=== PATIENT | female | born 1990 | race American Indian/Alaskan Native ===

== ENCOUNTER 2017-09-18 00:09 | Outpatient (CLI) | payer OTHER ==
[2017-09-18 00:21] VITALS: BP 133/84
== END 2017-09-18 00:58 | disposition home or self-care (01) ==
LOC: TRG 00:09
PROVIDERS: ATTEND Obstetrics & Gynecology
DX: O48.0 Post-term pregnancy (principal); Z3A.40 40 weeks gestation of pregnancy

== ENCOUNTER 2017-09-21 07:50 | Inpatient (IN) | payer OTHER ==
[2017-09-21] MEDS ORDERED: LACTATED RINGERS 1,000 ML IV ONE (08:14)
[2017-09-21] MEDS ORDERED: LACTATED RINGERS 1,000 ML ONE (08:16)
[2017-09-21] MEDS ORDERED: BRETHINE SUB-Q PRN (08:34)
[2017-09-21] MEDS ORDERED: ePHEDrine SULFATE IV PRN ×2 (08:34→13:31)
[2017-09-21] MEDS ORDERED: SUBLIMAZE IV PRN (08:34)
[2017-09-21] MEDS ORDERED: MINERAL OIL PO PRN (08:34)
[2017-09-21] MEDS ORDERED: ZOFRAN IV PRN (08:34)
[2017-09-21] MEDS ORDERED: XYLOCAINE 2% INFILTRATI ONE (08:34)
--- NOTE | 2017-09-21 08:34 | History and Physical Report ---
History of Present Illness Date of examination: 09/21/17 Chief complaint: labor contractions @ 41+0 by LMP History of present illness: patient has had no care, per patient. reports LMP 12/08/16 which gives EDC 09/14/17 making patient 41 weeks today Patient reports some measurement at some hospital around 30 weeks that gave EDC of 09/30/17. Will assign EDC based on LMP. Patient denies medical hx, + HSV but never had an outbreak surgical hx: gallbladder removal 2012 OB hx: 2006 2007 2010 2013 - pre-e 2014 2016 - pre-e Past History Past Medical History: no pertinent history Past Surgical History: cholecystectomy [facility]ICKER History: herpes Family/Genetic History: none Social history: no significant social history. denies: smoking, alcohol abuse, prescription drug abuse - Obstetrical History Expected Date of Delivery: 09/14/17 Actual Gestation: 41 Week(s) 0 Day(s) : 7 Para: 6 Hx # Term Pregnancies: 6 Number of Pregnancies: 0 Spontaneous Abortions: 0 Induced : 0 Number of Living Children: 6 Medications and Allergies Allergies Allergy/AdvReac Type Severity Reaction Status Date / Time Penicillins Allergy Rash Verified 09/18/17 00:39 Home Medications Medication Instructions Recorded Confirmed Last Taken Type No Known Home Medications [No 09/21/17 09/21/17 Unknown History Reported Home Medications] Active Meds: Active Medications Lactated Ringer's (Lactated Ringers) 1,000 mls @ 999 mls/hr IV BOLUS ONE Stop: 09/21/17 09:14 Review of Systems All systems: negative - Vital Signs Vital signs: Vital Signs Pulse BP 88 121/80 09/21/17 08:26 09/21/17 08:26 Temp Pulse Resp BP Pulse Ox 88 121/80 09/21/17 08:26 09/21/17 08:26 - Physical Exam Breasts: Positive: normal Cardiovascular: Regular rate Lungs: Positive: Clear to auscultation, Normal air movement Abdomen: Positive: normal appearance, soft Genitourinary (Female): Positive: normal external genitalia, normal perenium ( no lesions noted) Vulva: both: normal Vagina: Positive: normal moisture Uterus: Positive: normal size Anus/Rectum: Positive: normal perianal skin Extremities: Positive: normal Deep Tendon Reflex Grade: Normal +2 - Obstetrical FHR: category 2 (variables) Uterine Contraction Monitor Mode: External Cervical Dilatation: 5 Cervical Effacement Percentage: 60 station: -2 Uterine Contraction Frequency (min): 2-3 Uterine Contraction Duration: 60 Uterine Contraction Pattern: Regular Uterine Tone Measurement Phase: Contraction Uterine Contraction Intensity: Moderate Results All other labs normal. Assessment and Plan 27y/o w/o care @ 41weeks by LMP admitted for labor. SVE 5/60/-2, regular ctx not decreased by ivf bolus, IBOW, no HSV lesions. Admission orders in EMR. Dr. Milian aware of admission. - Patient Problems (1) 40 weeks gestation of Current Visit: Yes Status: Acute (2) GBS screening not performed Current Visit: Yes Status: Acute Plan to address problem: no care Will treat with cleocin q8h d/t pcn allergy (3) Genital HSV Current Visit: Yes Status: Acute Plan to address problem: no lesions noted (4) with insufficient care Current Visit: Yes Status: Acute Qualifiers: Trimester: third trimester Qualified Code(s): O09.33 - Supervision of with insufficient care, third trimester Plan to address problem: OB labs and UDS will treat for unknown GSB
[2017-09-21] MEDS ORDERED: PITOCin/NS 20 UNIT/1000ML DRIP 20 UNITS/1,000 ML BAG IV SCH ×2 (09:00→18:00)
[2017-09-21] MEDS ORDERED: LACTATED RINGERS 1,000 ML IV SCH (09:00)
[2017-09-21] MEDS ORDERED: CLEOCIN 900 MG/50 mL 900 MG/50 ML BAG IV ONE (10:10)
[2017-09-21 10:28] LABS: Hematocrit 27.9 % (30.3-42.9); Hemoglobin 8.6 gm/dl (10.1-14.3); Mean Corpuscular HGB Conc 31 % (30-34); Mean Corpuscular Hemoglobin 20 pg (28-32); Mean Corpuscular Volume 64 fl (79-97); Platelet Count 205 K/mm3 (140-440); Red Blood Count 4.37 M/mm3 (3.65-5.03); Red Cell Distribution Width 15.5 % (13.2-15.2)
[2017-09-21 11:05] LABS: Rubella IgG Antibody Immune (Immune)
--- NOTE | 2017-09-21 11:46 | Progress Note ---
Assessment and Plan SVE 5-/-1, AROM clear fluid. IUPC placed without difficulty. Will start pitocin augmentation. Dr. Milian updated and aware of patient's status. - Patient Problems (1) GBS screening not performed Current Visit: Yes Status: Acute (2) Genital HSV Current Visit: Yes Status: Acute (3) with insufficient care Current Visit: Yes Status: Acute Qualifiers: Trimester: third trimester Qualified Code(s): O09.33 - Supervision of with insufficient care, third trimester (4) 41 weeks gestation of Current Visit: Yes Status: Acute Subjective - Subjective Date of service: 09/21/17 Principal diagnosis: iup @ 41W, no care Interval history: patient has had no care, per patient. reports LMP 12/08/16 which gives EDC 09/14/17 making patient 41 weeks today Patient reports some measurement at some hospital around 30 weeks that gave EDC of 09/30/17. Will assign EDC based on LMP. Patient denies medical hx, + HSV but never had an outbreak surgical hx: gallbladder removal 2012 OB hx: 2006 2007 2010 2013 - pre-e 2014 2016 - pre-e Patient reports: contractions Objective - Vital Signs Vital Signs: Vital Signs - 12hr 09/21/17 09/21/17 09/21/17 08:26 09:03 09:25 Temperature 98.4 F Pulse Rate 88 94 H 115 H Respiratory 20 Rate Blood Pressure 121/80 102/71 Blood Pressure 102/71 [Left] O2 Sat by Pulse Oximetry 09/21/17 09/21/17 09/21/17 09:29 09:34 09:39 Temperature Pulse Rate 100 H 100 H 95 H Respiratory Rate Blood Pressure Blood Pressure [Left] O2 Sat by Pulse 100 100 100 Oximetry 09/21/17 09/21/17 09/21/17 09:44 09:49 09:54 Temperature Pulse Rate 96 H 98 H 100 H Respiratory Rate Blood Pressure Blood Pressure [Left] O2 Sat by Pulse 100 100 100 Oximetry 09/21/17 09/21/17 09/21/17 09:59 10:04 10:09 Temperature Pulse Rate 93 H 98 H 103 H Respiratory Rate Blood Pressure Blood Pressure [Left] O2 Sat by Pulse 100 100 88 Oximetry 09/21/17 09/21/17 09/21/17 10:14 10:15 10:19 Temperature Pulse Rate 92 H 102 H 97 H Respiratory Rate Blood Pressure Blood Pressure [Left] O2 Sat by Pulse 100 90 100 Oximetry 09/21/17 09/21/17 09/21/17 10:24 10:29 10:34 Temperature Pulse Rate 98 H 98 H 104 H Respiratory Rate Blood Pressure Blood Pressure [Left] O2 Sat by Pulse 100 100 99 Oximetry 09/21/17 09/21/17 09/21/17 10:39 10:44 10:49 Temperature Pulse Rate 104 H 85 93 H Respiratory Rate Blood Pressure Blood Pressure [Left] O2 Sat by Pulse 100 99 100 Oximetry 09/21/17 09/21/17 09/21/17 10:54 10:59 11:04 Temperature Pulse Rate 112 H 96 H 105 H Respiratory Rate Blood Pressure Blood Pressure [Left] O2 Sat by Pulse 100 100 100 Oximetry 09/21/17 11:09 Temperature Pulse Rate 109 H Respiratory Rate Blood Pressure Blood Pressure [Left] O2 Sat by Pulse 100 Oximetry - Exam Breasts: normal Cardiovascular: Regular rate Lungs: Clear to auscultation, Normal air movement Abdomen: Present: normal appearance, soft Vulva: both: normal Uterus: Present: normal FHR: category 1 Uterine Contraction Monitor Mode: Internal Cervical Dilatation: 5.5 Cervical Effacement Percentage: 70 station: -1 Uterine Contraction Frequency (min): 3-5 Uterine Contraction Duration: 60 Uterine Contraction Pattern: Irregular Uterine Tone Measurement Phase: Contraction Uterine Contraction Intensity: Mild Extremities: normal Deep Tendon Reflex Grade: Normal +2 - Labs Labs: Abnormal Labs 09/21/17 10:03 Hgb 8.6 L Hct 27.9 L MCV 64 L MCH 20 L RDW 15.5 H Laboratory Results - last 24 hr 09/21/17 09/21/17 09/21/17 10:03 10:03 10:03 WBC 9.0 RBC 4.37 Hgb 8.6 L Hct 27.9 L MCV 64 L MCH 20 L MCHC 31 RDW 15.5 H Plt Count 205 RPR Nonreactive HIV 1&2 Antibody Rapid HIV P24 Antigen Rubella IgG Antibody Blood Type B NEGATIVE Antibody Screen Negative 09/21/17 09/21/17 10:03 10:03 WBC RBC Hgb Hct MCV MCH MCHC RDW Plt Count RPR HIV 1&2 Antibody Rapid Non react HIV P24 Antigen Non react Rubella IgG Antibody Immune Blood Type Antibody Screen
[2017-09-21] MEDS ORDERED: PITOCin/NS 30 UNIT/500ML 30 UNITS/500 ML BAG IV SCH (12:00)
[2017-09-21] MEDS ORDERED: NARCAN 2 MG/2 ML IV PRN (13:31)
--- NOTE | 2017-09-21 13:44 | Anesthesia Consultation ---
Anesthesia Consult and Med Hx - Airway Anesthetic Teeth Evaluation: Good ROM Head & Neck: Adequate Mental/Hyoid Distance: Adequate Mallampati Class: Class III Intubation Access Assessment: Possibly Difficult - Pulmonary Exam CTA: Yes - Cardiac Exam Cardiac Exam: RRR - Pre-Operative Health Status ASA Pre-Surgery Classification: ASA3 Proposed Anesthetic Plan: Epidural - Pulmonary Hx Asthma: No COPD: No Hx Pneumonia: No - Cardiovascular System Hx Hypertension: No - Central Nervous System Hx Seizures: No Hx Psychiatric Problems: No - Endocrine Hx Renal Disease: No Hx End Stage Renal Disease: No Hx Hypothyroidism: No Hx Hyperthyroidism: No - Hematic Hx Anemia: No Hx Sickle Cell Disease: No - Other Systems Hx Alcohol Use: No
[2017-09-21 13:49] LABS: Hepatitis C Virus Antibody Non-Reactive (NonReactive)
[2017-09-21] MEDS ORDERED: fentaNYL-BUPIV 2 MCG/ML-0.125% 200 MCG/100 ML BAG EPIDURAL SCH (14:00)
[2017-09-21] MEDS ORDERED: CLEOCIN 900 MG/50 mL 900 MG/50 ML BAG IV SCH (14:00)
--- NOTE | 2017-09-21 14:21 | Procedure Note ---
OB Delivery Note - Delivery Date of Delivery: 09/21/17 ( female) Narrow Gauge Brakeman: PERLA VAZQUEZ Estimated blood loss: other (350) - Vaginal Delivery presentation: vertex Delivery position: OA Intrapartum events: no care Delivery induction: none Delivery augmentation: rupture of membranes, pitocin Delivery monitor: external FHT, internal FHT Route of delivery: Delivery placenta: spontaneous Delivery cord: nuchal cord, 3 umbilical vessels Episiotomy: none Delivery laceration: none Anesthesia: epidural Delivery comments: female infant del over intact perineum, del ANGELA and restituted to OP, shoulders del transverse. Cord around neck x 1 loose, easily reduced prior to del of shoulders. Infant placed skin to skin, 3 vessel cord clamped and cut. cord blood collected. placenta del intact and complete, sent to pathology. no lacerations to repair, EBL 350, apgars 7/9, 's weight 7#10oz. Mother and remain LDR stable. - A at 1 minute: 7 at 5 minutes: 9 Infant Gender: Female (7#10)
[2017-09-21] MEDS ORDERED: TUCKS PAD TP PRN (17:00)
[2017-09-21] MEDS ORDERED: TYLENOL PO PRN (17:00)
[2017-09-21] MEDS ORDERED: SODIUM CHLORIDE FLUSH SYRINGE 10 ML IV SCH (17:00)
[2017-09-21] MEDS ORDERED: PHENERGAN PO PRN (17:00)
[2017-09-21] MEDS ORDERED: METHERGINE PO PRN (17:00)
[2017-09-21] MEDS ORDERED: LANSINOH TP PRN (17:00)
[2017-09-21] MEDS ORDERED: DULCOLAX PR PRN (17:00)
[2017-09-21] MEDS ORDERED: MILK OF MAGNESIA PO PRN (17:00)
[2017-09-21] MEDS ORDERED: BENADRYL PO PRN (17:04)
[2017-09-21] MEDS: MOTRIN PO SCH (17:20)
[2017-09-21] MEDS: NORCO 5/325 PO PRN (17:21)
[2017-09-21 21:10] LABS: Hematocrit 25.2 % (30.3-42.9); Hemoglobin 7.5 gm/dl (10.1-14.3); Mean Corpuscular HGB Conc 30 % (30-34); Platelet Count 187 K/mm3 (140-440); Red Blood Count 3.97 M/mm3 (3.65-5.03); Red Cell Distribution Width 15.5 % (13.2-15.2)
[2017-09-21 21:22] LABS: Mean Corpuscular Hemoglobin 19 pg (28-32); Mean Corpuscular Volume 63 fl (79-97)
[2017-09-21 21:32] LABS: Alanine Aminotransferase 5 units/L (7-56); Uric Acid 4.3 mg/dL (3.5-7.6)
[2017-09-21 21:46] LABS: Bilirubin,Urine NEG (Negative); Blood,Urine LG (Negative); Color,Urine Yellow (Yellow); Mucus,Urine FEW /HPF; Nitrite,Urine NEG (Negative); Urobilinogen,Urine < 2.0 mg/dL (<2.0)
[2017-09-21 21:56] LABS: RBC,Urine > 182.0 /HPF (0.0-6.0)
[2017-09-21] MEDS: COLACE PO SCH (22:26)
[2017-09-21] MEDS: FEOSOL PO SCH (22:26)
[2017-09-22] MEDS: MOTRIN PO SCH ×4 (00:28→22:06)
[2017-09-22] MEDS: NORCO 5/325 PO PRN ×2 (00:29→19:01)
[2017-09-22 02:21] LABS: Hematocrit 24.5 % (30.3-42.9); Hemoglobin 7.7 gm/dl (10.1-14.3)
[2017-09-22 02:22] LABS: Amphetamine Screen,Urine PRESUMPTIVE NEGATIVE; Benzodiazepines Screen,Urine PRESUMPTIVE NEGATIVE; Cannabinoid Screen,Urine PRESUMPTIVE NEGATIVE; Cocaine Screen,Urine PRESUMPTIVE NEGATIVE; Methadone Screen,Urine PRESUMPTIVE NEGATIVE; Opiate Screen,Urine PRESUMPTIVE NEGATIVE
[2017-09-22] MEDS ORDERED: BOOSTRIX IM ONE (06:00)
[2017-09-22] MEDS: FEOSOL PO SCH ×3 (07:44→22:07)
--- NOTE | 2017-09-22 07:50 | Progress Note ---
Assessment and Plan - Patient Problems (1) (normal spontaneous vaginal delivery) Onset Date: ~09/21/17 Current Visit: Yes Status: Acute Plan to address problem: No c/o voiced VSS FF below umb lochia small Perineum intact H&H 03/29 chronic anemia Drop r/t blood loss from delivery Doing well s/p vag delivery P: continue pathway Poss d/c tomorrow Depo for BC Subjective - Subjective Date of service: 09/22/17 (pt w/o complaint) Principal diagnosis: S/P vaginal delivery; no care Patient reports: appetite normal, voiding normally, pain well controlled, ambulating normally : doing well Objective - Vital Signs Latest vital signs: Vital Signs Temp Pulse Resp BP BP Pulse Ox 09/22/17 00:28 18 09/21/17 20:10 98.2 F 91 H 20 108/71 09/21/17 18:10 142/95 09/21/17 17:21 20 09/21/17 17:20 137/98 09/21/17 16:45 98.3 F 99 H 16 140/90 09/21/17 16:00 79 80 L 09/21/17 15:49 104 H 129/75 09/21/17 15:45 144 H 93 09/21/17 15:40 98 H 100 09/21/17 15:35 105 H 100 09/21/17 15:34 102 H 136/78 09/21/17 15:30 100 H 100 09/21/17 15:28 105 H 71 L 09/21/17 15:25 107 H 100 09/21/17 15:22 98 H 89 09/21/17 15:20 95 H 100 09/21/17 15:19 93 H 140/73 09/21/17 15:15 101 H 100 09/21/17 15:10 101 H 90 09/21/17 15:05 98 H 92 09/21/17 15:04 93 H 138/76 85 09/21/17 15:00 103 H 97 09/21/17 14:56 96 H 92 09/21/17 14:55 98 H 99 09/21/17 14:50 109 H 98 09/21/17 14:49 107 H 122/57 09/21/17 14:45 107 H 100 09/21/17 14:41 120 H 92 09/21/17 14:40 111 H 100 09/21/17 14:35 106 H 100 09/21/17 14:34 110 H 127/63 09/21/17 14:33 108 H 126/60 09/21/17 14:31 110 H 134/60 09/21/17 14:29 109 H 122/56 09/21/17 14:27 111 H 133/64 09/21/17 14:23 118 H 108/54 09/21/17 14:21 107 H 115/57 09/21/17 14:19 104 H 09/21/17 14:17 110 H 123/61 09/21/17 14:15 118 H 117/65 09/21/17 14:07 136 H 118/83 09/21/17 14:06 119 H 96 09/21/17 14:05 110 H 132/83 09/21/17 14:03 111 H 134/81 09/21/17 14:01 115 H 126/75 09/21/17 14:00 115 H 100 09/21/17 13:59 100 H 132/77 09/21/17 13:58 74 87 09/21/17 13:57 112 H 123/79 09/21/17 13:55 115 H 117/78 09/21/17 13:51 100 H 132/62 09/21/17 13:49 103 H 119/61 09/21/17 13:47 109 H 134/67 09/21/17 13:45 109 H 109/59 09/21/17 13:43 105 H 125/78 09/21/17 13:41 111 H 126/74 09/21/17 13:39 105 H 124/72 09/21/17 13:37 102 H 125/75 09/21/17 13:35 105 H 122/76 09/21/17 13:33 102 H 118/73 09/21/17 13:31 108 H 131/71 09/21/17 13:29 106 H 120/66 09/21/17 13:27 108 H 114/65 09/21/17 13:25 113 H 129/57 09/21/17 13:23 107 H 128/73 09/21/17 13:21 114 H 127/76 09/21/17 13:19 113 H 128/78 09/21/17 13:17 107 H 128/74 09/21/17 13:15 105 H 100 09/21/17 13:14 109 H 127/75 09/21/17 13:12 103 H 125/78 09/21/17 13:11 103 H 126/79 09/21/17 13:10 105 H 100 09/21/17 13:05 102 H 100 09/21/17 13:00 104 H 99 09/21/17 12:59 108 H 123/70 09/21/17 11:09 109 H 100 09/21/17 11:04 105 H 100 09/21/17 10:59 96 H 100 09/21/17 10:54 112 H 100 09/21/17 10:49 93 H 100 09/21/17 10:44 85 99 09/21/17 10:39 104 H 100 09/21/17 10:34 104 H 99 09/21/17 10:29 98 H 100 09/21/17 10:24 98 H 100 09/21/17 10:19 97 H 100 09/21/17 10:15 102 H 90 09/21/17 10:14 92 H 100 09/21/17 10:09 103 H 88 09/21/17 10:04 98 H 100 09/21/17 09:59 93 H 100 09/21/17 09:54 100 H 100 09/21/17 09:49 98 H 100 09/21/17 09:44 96 H 100 09/21/17 09:39 95 H 100 09/21/17 09:34 100 H 100 09/21/17 09:29 100 H 100 09/21/17 09:25 115 H 102/09/21/17 09:03 98.4 F 94 H 20 102/71 09/21/17 08:26 88 121/80 Intake and Output 09/21/17 09/22/17 09/22/17 22:59 06:59 14:59 Intake Total 480 120 Output Total 250 600 Balance 230 -480 Intake: Oral 480 120 Output: Urine 250 600 Void 250 600 Other: Total, Intake Amount 240 120 Total, Output Amount 250 600 Voiding Method Toilet - Exam Breasts: Present: normal Cardiovascular: Present: Regular rate Lungs: Present: Normal air movement Abdomen: Present: normal appearance, soft, normal bowel sounds Uterus: Present: normal, firm, fundal height below umbilicus Extremities: Present: normal Deep Tendon Reflex Grade: Normal +2 Incision: Present: normal - Labs Labs: Abnormal lab results 09/21/17 09/21/17 09/21/17 Range/Units 10:03 19:53 19:53 WBC 12.3 H (4.5-11.0) K/mm3 Hgb 8.6 L 7.5 L (10.1-14.3) gm/dl Hct 27.9 L 25.2 L (30.3-42.9) % MCV 64 L 63 L (79-97) fl MCH 20 L 19 L (28-32) pg RDW 15.5 H 15.5 H (13.2-15.2) % Creatinine 0.4 L (0.7-1.2) mg/dL ALT 5 L (7-56) units/L Lactate Dehydrogenase 236 H (91-180) units/L Urine WBC (Auto) (0.0-6.0) /HPF 09/21/17 09/22/17 Range/Units Unknown 02:00 WBC (4.5-11.0) K/mm3 Hgb 7.7 L (10.1-14.3) gm/dl Hct 24.5 L (30.3-42.9) % MCV (79-97) fl MCH (28-32) pg RDW (13.2-15.2) % Creatinine (0.7-1.2) mg/dL ALT (7-56) units/L Lactate Dehydrogenase (91-180) units/L Urine WBC (Auto) 8.0 H (0.0-6.0) /HPF
[2017-09-22] MEDS ORDERED: DEPO-PROVERA (CONTRACEPTION) IM NR ×2 (09:00→13:40)
[2017-09-22] MEDS ORDERED: PRENATAL VITAMIN PO SCH (10:00)
[2017-09-22] MEDS: COLACE PO SCH ×2 (10:29→22:07)
--- NOTE | 2017-09-23 06:14 | Discharge Summary ---
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 Additional Physician Instructions: 27y/o , no care Consult to Demand Planning Manager [CONS] Routine Reason For Exam: assistance with , SNS Primary care physician: RAULITO CHAPIN Hospitalization Reason for admission: active labor Delivery: Episiotomy: none Laceration: none Incision: normal Other procedures: none complications: none Discharge diagnosis: IUP at term delivered baby: female Hospital course: uncomplicated vaginal delivery : no care Pt w/o complaint VSS FF below umb Lochia scant Perineum intact Asymptomatic anemia Doing well s/p vag del P: d/c today with instructions DEPO given prior to d/c RTO for PP care 4=6 weeks Condition at discharge: Good Disposition: DC- TO HOME OR SELFCARE - Discharge Diagnoses (1) (normal spontaneous vaginal delivery) Status: Acute Comment: RTO 4-6 weeks PP care Plan - Discharge Medications Prescriptions: Docusate Sodium [Colace] 100 mg PO BID PRN #60 capsule PRN Reason: Constipation Ferrous Sulfate [Feosol 325 MG tab] 325 mg PO BID #60 tablet - Provider Discharge Summary Activity: routine, no sex for 6 weeks, no heavy lifting 4 weeks, no strenuous exercise Diet: routine Instructions: routine Additional instructions: [] Smoking cessation referral if applicable(refer to patient education folder for contact #) [] Refer to [facility] Booklet Call your doctor immediately for: * Fever > 100.5 * Heavy vaginal bleeding ( >1 pad per hour) * Severe persistent headache * Shortness of breath * Reddened, hot, painful area to leg or breast * Drainage or odor from incision. * Keep incision clean and dry at all times and follow doctor's instructions regarding bathing/showering - Follow up plan Follow up: RAULITO CHAPIN MD [Primary Care Provider] - 6 Weeks (Congratulations! Please call [phone] to schedule your visit 4-6 weeks. Take medications as prescribed. Call with concerns. [facility]: [address] [facility] [address] [place], [place] [id number])
[2017-09-23] MEDS: COLACE PO SCH (12:02)
[2017-09-23] MEDS: FEOSOL PO SCH (12:02)
[2017-09-23] MEDS: MOTRIN PO SCH (12:02)
[2017-09-23] MEDS ORDERED: DEPO-PROVERA (CONTRACEPTION) IM ONE ×2 (16:09→16:11)
[2017-09-23 19:35] VITALS: BP 118/78
== END 2017-09-23 16:50 | disposition home or self-care (01) | DRG 774 ==
LOC: TRG 07:50 → LD 08:56 → OB 16:58
PROVIDERS: ADMIT Obstetrics & Gynecology; ATTEND Obstetrics & Gynecology
PROC: 10E0XZZ Delivery of Products of Conception, External Approach (ICD-10-PCS; principal; 2017-09-21)
PROC: 3E0R3BZ Introduction of Anesthetic Agent into Spinal Canal, Percutaneous Approach (ICD-10-PCS; 2017-09-21)
PROC: 00HU33Z Insertion of Infusion Device into Spinal Canal, Percutaneous Approach (ICD-10-PCS; 2017-09-21)
PROC: 3E0234Z Introduction of Serum, Toxoid and Vaccine into Muscle, Percutaneous Approach (ICD-10-PCS; 2017-09-22)
DX: O98.32 Other infections with a predominantly sexual mode of transmission complicating childbirth (principal); A60.09 Herpesviral infection of other urogenital tract; O69.81X0 Labor and delivery complicated by cord around neck, without compression, not applicable or unspecified; O99.02 Anemia complicating childbirth; D64.9 Anemia, unspecified; Z37.0 Single live birth; Z3A.41 41 weeks gestation of pregnancy; Z23 Encounter for immunization; Z88.0 Allergy status to penicillin; Z90.49 Acquired absence of other specified parts of digestive tract
CPT/HCPCS: 36415; 80307; 81001; 82565; 83615; 84450; 84460; 84550; 85014; 85018; 85027; 85461; 86592; 86706; 86762; 86803; 86850; 86900; 86901; 87806; 88307; 99211; G0463; J1050; J2590; J2790; J3010; J7120